=== PATIENT | female | born 1950 | race African-American/Black ===

== ENCOUNTER → 2019-02-25 | Outpatient (CLI) | payer OTHER ==
[~2019-02-25] VITALS: Ht 162.6 cm; Wt 86.2 kg
[~2019-02-25] MED LIST: LISINOPRIL-HCT1 EAC1 PO
--- NOTE | ~2019-02-25 | P ---
[facility] [place] [address] PROCEDURE REPORT Name: BENNYDOMITILA Minh Room #: [id number] Admission: 02/25/19 ������������������ Attend Phys: Carlos Alberto Girard Discharge: ������������������ Date of : 46 Report #: [id number] THIS REPORT FOR: //name// CC: Carlos Alberto Chun MD DATE OF SERVICE: 02/25/2019 PROCEDURE PERFORMED: Colonoscopy. HISTORY OF PRESENT ILLNESS: The patient is a 68-year-old female who presents today for routine screening colonoscopy. Last colonoscopy reportedly normal 10 years ago. She denies any symptoms. She does have a family history of colon cancer in a brother. DESCRIPTION OF PROCEDURE: The risks and benefits of the procedure were explained to the patient, those risks including but not limited to bleeding, perforation, risk of sedation. She understood these risks and gave informed consent. Sedation was given using propofol per anesthesia. Next, a digital rectal exam was initially performed, which was normal. Next, using a standard Olympus colonoscope, the scope was placed in the patient's anus and advanced under direct vision to the cecum. The overall prep was good. The cecum and ileocecal valve were normal in appearance. The ascending, transverse, and descending colon were normal. A few small scattered diverticula were noted in the sigmoid colon, no evidence of inflammation, otherwise normal. The rectal mucosa was normal. On retroflexion, no abnormalities were noted. The scope was then withdrawn and the procedure terminated. The patient tolerated the procedure well. IMPRESSION: 1. Mild sigmoid diverticulosis. 2. Otherwise, normal colonoscopy. RECOMMENDATIONS: Repeat colonoscopy in 5 years due to family history. Thank you for allowing me to participate in her care. ��������������������������������������������� ���������������������������������������� By: ��������������������������������������������� [id number] Carlos Alberto Alcantar MD /nt
== END | disposition home or self-care (01) ==
LOC: GI 07:50
DX: Z12.11 Encounter for screening for malignant neoplasm of colon (principal); K57.30 Diverticulosis of large intestine without perforation or abscess without bleeding; I10 Essential (primary) hypertension; Z80.0 Family history of malignant neoplasm of digestive organs; Z98.890 Other specified postprocedural states; Z88.8 Allergy status to other drugs, medicaments and biological substances; Z79.899 Other long term (current) drug therapy
CPT/HCPCS: 62110; 62900